=== PATIENT | female | born 1985 | race Caucasian/White ===

== ENCOUNTER 2021-09-04 07:40 | Emergency (ER) | payer SELFPAY ==
[2021-09-04 07:41] VITALS: BP 136/88; PULSE 120; RESP 18; TEMP 36.8; O2SAT 100; BMI 29.2
[2021-09-04 08:26] VITALS: BP 129/80; PULSE 98; RESP 12; O2SAT 96
--- NOTE | 2021-09-04 08:35 | ED_ITS ---
HPI - Chest Pain General: Chief Complaint: Chest Pain Stated Complaint: High heart rate, Blacks out, weakness Time Seen by Provider: 09/04/21 08:24 Source: patient Mode of arrival: ambulatory History of Present Illness: 36-year-old female presents emergency room with complaint of rapid heart rate. She will get episodes of this that will be usually self-limited she had an episode at home that was over 170. It is resolved now on arrival here she is in the 90s she is awake and alert was essentially normal vital signs. She denies any chest pain. She not had any shortness of breath no abdominal pain no vomiting no diarrhea. She does not use large amounts of stimulants such as coffee other caffeinated drinks energy drinks. She does not use any decongestants or nasal sprays. No prescription medications. She has had these episodes intermittently for a week the episode last night was the most prolonged episode episode. Onset (ago): week(s) Timing of current episode: episodic Prior episodes: Yes Onset: during rest Pain radiation: none Relieving factors: nothing Exacerbating factors: nothing Associated symptoms: Deny abdominal pain, dyspnea, fever(s), nausea or vomiting Risk Factors: Coronary artery disease risk factors: none Thoracic aortic dissection risk factors: none Related Data: On Oral Contraceptives: No Review of Systems Const: Denies: fever(s), chills, body aches, change in appetite, fatigue or malaise ENMT: Denies: throat pain, ear or mastoid pain, nasal discharge or nasal congestion Card: Denies: chest pain, edema, dyspnea on exertion or orthopnea Resp: Denies: dyspnea, productive cough or non-productive cough GI: Denies: abdominal pain, nausea, vomiting, hematemesis, coffee ground emesis, diarrhea, constipation, bloating, hematochezia or melena : Denies: flank pain, difficulty voiding, dysuria, urinary frequency or urinary urgency Skin/Breast: Denies: rash or pruritus PFSH ED PFSH: Medical History (Updated 09/09/21 @ 07:11 by Chris Chao DO) No significant past medical history Surgical History (Updated 09/09/21 @ 07:11 by Chris Chao DO) No significant past surgical history Female Reproductive History: Date of last menstrual period: 08/16/21 Physical Exam Const: GENERAL APPEARANCE: cooperative and comfortable ORIENTATION/CONSCIOUSNESS: Yes awake, Yes oriented to person, Yes oriented to place and Yes oriented to time HENMT: COMMON NORMALS: normocephalic, atraumatic and hearing grossly normal bilaterally HEAD & SCALP: normocephalic and atraumatic Eye: COMMON NORMALS: Equal, round and reactive pupils present, EOMs intact bilaterally, conjunctivae normal and no scleral icterus CONJUNCTIVA: Yes conjunctivae normal PUPIL: Yes Equal, round and reactive pupils present Resp: COMMON NORMALS: normal respiratory effort, No retractions, No use of accessory muscles and clear to auscultation bilaterally AUSCULTATION: clear to auscultation bilaterally Cardio: COMMON NORMALS: regular rate, regular rhythm and No murmurs present (Cardio) RATE: regular rate RHYTHM: regular rhythm GI: COMMON NORMALS: Soft to palpation and No hepatosplenomegaly present AUSCULTATION: Yes normoactive bowel sounds PALPATION: Yes Soft to palpation, No Tenderness to palpation present (GI), No Guarding due to palpation present (GI) and Yes No hepatosplenomegaly present Extremity: COMMON NORMALS: normal to inspection, capillary refill normal, no clubbing, cyanosis or edema, no calf tenderness and no pedal edema Neuro: SENSORIUM/ORIENTATION: Yes oriented to person, Yes oriented to place and Yes oriented to time Skin: COMMON NORMALS: no rashes or lesions noted GENERAL SKIN EXAM: no rashes or lesions noted Course Vital Signs: Vital signs: Vital Signs Temperature 98.2 F 09/04/21 07:41 Pulse Rate 83 09/04/21 09:54 Respiratory Rate 14 09/04/21 09:54 Blood Pressure 117/75 09/04/21 09:54 Pulse Oximetry 97 09/04/21 09:54 MDM - Chest Pain Medical Decision Making Initial EKG seen once on paper unfortunately its not documented in the chart. Showed sinus tachycardia. Patient had no arrhythmias during the time where here. Wearing [place] discharge her home set her up for a Holter monitor and follow-up with primary care physician/cardiology recurrent symptoms return. Medical Records I reviewed the patient's medical records. Lab Data I reviewed the patient's lab results. : 09/04/21 07:58 09/04/21 07:58 Laboratory Results WBC 8.5 10^3/uL (4.0-10.0) 09/04/21 07:58 RBC 5.02 10^6/uL (4.1-5.3) 09/04/21 07:58 Hgb 14.6 g/dL (11.5-15.3) 09/04/21 07:58 Hct 43.8 % (37.0-47.0) 09/04/21 07:58 MCV 87.3 fl (81-99) 09/04/21 07:58 MCH 29.1 pg (28.0-34.0) 09/04/21 07:58 MCHC 33.3 g/dL (30.0-36.0) 09/04/21 07:58 RDW 12.6 % (12.1-15.1) 09/04/21 07:58 Plt Count 214 10^3/cmm (130-400) 09/04/21 07:58 MPV 10.6 fL (7.4-10.4) H 09/04/21 07:58 Neut % (Auto) 77.3 % 09/04/21 07:58 Lymph % (Auto) 16.5 % 09/04/21 07:58 [place] % (Auto) 4.8 % 09/04/21 07:58 Eos % (Auto) 0.6 % 09/04/21 07:58 Baso % (Auto) 0.6 % 09/04/21 07:58 Neut # (Auto) 6.58 10^3/uL (1.8-7.7) 09/04/21 07:58 Lymph # (Auto) 1.4 10^3/uL (0.8-4.8) 09/04/21 07:58 [place] # (Auto) 0.4 10^3/uL (0.2-0.9) 09/04/21 07:58 Eos # (Auto) 0.1 10^3/uL (0.0-0.8) 09/04/21 07:58 Baso # (Auto) 0.1 10^3/uL (0.0-0.1) 09/04/21 07:58 Nucleated RBC % (auto) 0 % 09/04/21 07:58 Nucleated RBCs # 0.0 /100WBC 09/04/21 07:58 Sodium 138 mmol/L (136-145) 09/04/21 07:58 Potassium 3.9 mmol/L (3.5-5.1) 09/04/21 07:58 Chloride 106 mmol/L (98-107) 09/04/21 07:58 Carbon Dioxide 21 mmol/L (22-29) L 09/04/21 07:58 Anion Gap 14.9 (5-19) 09/04/21 07:58 BUN 9 mg/dL (6-20) 09/04/21 07:58 Creatinine 0.6 mg/dL (0.5-0.9) 09/04/21 07:58 GFR Calculation 111.9 mL/min (90-130) 09/04/21 07:58 Glucose 112 mg/dL (65-115) 09/04/21 07:58 Calculated Osmolality 285 mOsm/kg (285-295) 09/04/21 07:58 Calcium 9.9 mg/dL (8.5-10.5) 09/04/21 07:58 Troponin T Gen 5 ng/L 6 ng/L (0-10) 09/04/21 07:58 Discharge Plan Discharge Patient Disposition: Home Clinical Impression: Palpitations Condition: Stable Discharge Orders: Discharge ED (Routine); Ordered 09/04/21 Ordered By: Chris Chao Patient Instructions: Opioid Safety Activity Restrictions/Additional Instructions: manager business will make arrangements for you to have a 48-hour Holter monitor and follow-up with cardiology Coding Level of Care Code ED Forging Press Setter Up for Sahina Fwd Exam Comprehensive
[2021-09-04 08:43] LABS: Basophils # 0.1 10^3/uL (0.0-0.1); Basophils % 0.6 %; Eosinophils # 0.1 10^3/uL (0.0-0.8); Eosinophils % 0.6 %; Hematocrit 43.8 % (37.0-47.0); Hemoglobin 14.6 g/dL (11.5-15.3); Lymphocytes # 1.4 10^3/uL (0.8-4.8); Lymphocytes % 16.5 %; Mean Corpuscular HGB Conc 33.3 g/dL (30.0-36.0); Mean Corpuscular Hemoglobin 29.1 pg (28.0-34.0); Mean Corpuscular Volume 87.3 fl (81-99); Mean Platelet Volume 10.6 fL (7.4-10.4); Monocytes # 0.4 10^3/uL (0.2-0.9); Monocytes % 4.8 %; Neutrophils # 6.58 10^3/uL (1.8-7.7); Neutrophils % 77.3 %; Nucleated Red Blood Cells % 0 %; Platelet Count 214 10^3/cmm (130-400); Red Blood Count 5.02 10^6/uL (4.1-5.3); Red Cell Distribution Width 12.6 % (12.1-15.1); White Blood Count 8.5 10^3/uL (4.0-10.0)
[2021-09-04 09:14] LABS: Troponin T (5th) Once 6 ng/L (0-10)
[2021-09-04 09:18] LABS: Anion Gap 14.9 (5-19); Blood Urea Nitrogen 9 mg/dL (6-20); Calcium 9.9 mg/dL (8.5-10.5); Carbon Dioxide 21 mmol/L (22-29); Chloride 106 mmol/L (98-107); Glomerular Filtration Rate 111.9 mL/min (90-130); Glucose 112 mg/dL (65-115); Osmolality Calculated 285 mOsm/kg (285-295); Potassium 3.9 mmol/L (3.5-5.1); Sodium 138 mmol/L (136-145)
[2021-09-04 09:54] VITALS: BP 117/75; PULSE 82; PULSE 83; RESP 14; RESP 16; O2SAT 97
--- NOTE | 2021-09-08 11:46 | DCPLANNER ---
Addendum entered by Karina Burkett 10/30/21 08:38: Patient had an appointment scheduled at [facility] for testing on 09.14.21 - patient did attend Patient had a follow up appointment on 10.07.21 with [facility] - patient did attend Addendum entered by Karina Burkett 09/11/21 14:38: Patient has a follow up appointment scheduled with [facility] for Tuesday, September 14, 2021 at [facility] for a 48 hour holter monitor. Clinic will call patient with appointment information. Addendum entered by Karina Burkett 09/09/21 12:48: information technology manager called [facility] a follow up appointment was scheduled for Thursday, October 07, 2021 at 1:[address] Ding. information technology manager called patient and gave patient the appointment information. information technology manager did confirm that [facility] received the order for the halter monitor. Original Note: information technology manager had message to schedule several follow ups for patient. information technology manager had message to speak with patient about getting a primary care physician, a 48 hour halter monitor and a follow up appointment with [facility]. information technology manager spoke with patient, she stated that she has a primary care physician, she states that she will be seeing Dr. Ramirez, at [facility]. Patient does want bilingual patient support caseworker to order the monitor and to schedule a follow up appointment at [facility] for patient. information technology manager will fax signed order to [facility] for the halter monitor. [facility] will call patient with appointment information. information technology manager will call [facility] and schedule a follow up appointment.
== END 2021-09-04 09:59 | disposition home or self-care (01) ==
PROVIDERS: Emergency Provider Family Medicine
DX: R00.2 Palpitations (principal)
CPT/HCPCS: 80048; 84484; 85025; 99283